=== PATIENT | female | born 1975 | race African-American/Black ===

== ENCOUNTER 2020-07-29 04:29 | Day surgery (SDC) | payer BC ==
[2020-07-28 10:44] VITALS: BMI 34.7
--- OUTSIDE RECORDS SUMMARY | 2020-07-29 04:33 | XMS ---
:1975 Author Organization [facility] Support Name Relationship Address [place] [address] [facility] Unavailable UNKNOWN UNKNOWN UNKNOWN UNKNOWN, UN UNKNOWN DOESNOTHAVE, ONE UNKNOWN UNKNOWN UN UNKNOWN, UN UN Re-disclosure Warning The records that you are about to access may contain information from federally- assisted alcohol or drug abuse programs. If such information is present, then the following federally mandated warning applies: This information has been disclosed to you from records protected by federal confidentiality rules (42 CFR part 2). The federal rules prohibit you from making any further disclosure of this information unless further disclosure is expressly permitted by the written consent of the person to whom it pertains or as otherwise permitted by 42 CFR part 2. A general authorization for the release of medical or other information is NOT sufficient for this purpose. The Federal rules restrict any use of the information to criminally investigate or prosecute any alcohol or drug abuse patient.The records that you are about to access may contain highly sensitive health information, the redisclosure of which is protected by Article 27-F of the [facility] Public Health law. If you continue you may haveaccess to information: Regarding HIV / AIDS; Provided by facilities licensed or operated by the [facility] Office of Mental Health; or Provided by the [facility] Office for People With Developmental Disabilities. If such information is present, then the following [facility] mandated warning applies: This information has been disclosed to you from confidential records which are protected by state law. State law prohibits you from making any further disclosure of this information without the specific written consent of the person to whom it pertains, or as otherwise permitted by law. Any unauthorized further disclosure in violation of state law may result in a fine or senior care sentence or both. A general authorization for the release of medical or other information is NOT sufficient authorization for further disclosure. Insurance Providers Payer name Policy type / Policy ID Covered Covered green party's Policy Plan Coverage type green party ID relationship to Landa Information landa BC OUT OF [id number] SP [id number] [employer] 40 BC OUT OF [id number] SP [id number] [employer] 40 Results ID Date Data Source [id number] 07/25/2020 05:50:00 PM EDT [facility] Name Value Range Interpretation Description Data Sup porting Code Source(s) Document(s ) SARS [facility] coronavirus 2 RNA This lab was ordered by [facility] and reported by [facility]. ID Date Data Source [id number] 06/28/2020 12:00:00 PM EDT [facility] Name Value Range Interpretation Code Description Data Yojana rce(s) Supporting Document(s ) SARS-CoV-2 [facility] (COVID-19) This lab was ordered by [facility] and reported by [facility]. ID Date Data Source [id number] 04/21/2020 04:23:00 PM EDT [facility] Name Value Range Interpretation Code Description Data Yojana rce(s) Supporting Document(s ) SARS-CoV-2 [facility] (COVID19) This lab was ordered by [facility] and reported by [facility]. Procedure
[2020-07-29] MEDS ORDERED: MIDAZOLAM HCL 2 MG/2 ML SINGLE DOSE VIAL ONE ×2 (09:15)
[2020-07-29] MEDS ORDERED: PROPOFOL 20 ML ONE ×3 (09:15)
--- NOTE | 2020-07-29 09:26 | HP ---
History & Physical Update - History History: No Change - Physical Physical: No Change - Assessment Assessment: No Change - Plan Plan: No Change (Hysteroscopy, polypectomy, D&C)
[2020-07-29] MEDS ORDERED: ceFAZolin SODIUM 1 GM VIAL ONE (09:40)
[2020-07-29] MEDS ORDERED: ceFAZolin SODIUM 1 GM VIAL IVPB ONE (09:40)
[2020-07-29] MEDS ORDERED: KETOROLAC TROMETHAMINE 30 MG/1 ML VIAL ONE (09:59)
--- NOTE | 2020-07-29 10:07 | OP ---
Operative Note - Note: Operative Date: 07/29/20 Pre-Operative Diagnosis: Endometrial polyp, menorrhagia Operation: Hysteroscopy, polypectomy, D&C Findings: Endometrial polyps Post-Operative Diagnosis: Same as Pre-op Surgeon: Mendoza Jimenes Anesthesiologist/TOWER DIRECTOR: Arnulfo Cruz Anesthesia: General Specimens Removed: Endometrial polyps, endometrial curettings Estimated Blood Loss (mls): 3 Blood Volume Replaced (mls): 0 Fluid Volume Replaced (mls): 700 Operative Report Dictated: Yes
[2020-07-29] MEDS ORDERED: ONDANSETRON 4 MG/2 ML VIAL IVPUSH PRN (10:13)
[2020-07-29] MEDS ORDERED: ACETAMINOPHEN 325 MG TABLET (FP) PO PRN (10:13)
[2020-07-29] MEDS ORDERED: oxyCODONE HCL 5 MG TABLET PO PRN (10:13)
[2020-07-29] MEDS ORDERED: LACTATED RINGERS SOLUTION 1,000 ML IV SCH (10:15)
[2020-07-29 13:42] VITALS: BP 154/62; PULSE 90; TEMP 98
--- NOTE | 2020-07-29 19:23 | OP ---
DATE OF OPERATION: 07/29/2020 PREOPERATIVE DIAGNOSIS: Endometrial polyps, menorrhagia. POSTOPERATIVE DIAGNOSIS: Endometrial polyps, menorrhagia. PROCEDURE: Hysteroscopy, polypectomy, dilation and curettage. SURGEON: Mendoza Jimenes MD ANESTHESIOLOGIST: Arnulfo Cruz DO ANESTHESIA: General. COMPLICATIONS: None. ESTIMATED BLOOD LOSS: 30 mL. INTRAVENOUS FLUIDS: 700 mL. PATHOLOGY: Endometrial polyps, endometrial curettings. FINDINGS: Examination under anesthesia revealed a small anteverted uterus with no pelvic or adnexal masses palpable. Hysteroscopy revealed several endometrial polyps and an otherwise normal uterine cavity. PROCEDURE: The patient was met preoperatively. The risks, benefits, and alternatives of surgery were discussed in detail. The consent form was reviewed and explained. The patient verbalized her understanding and requested to proceed with the surgery. She was brought to the OR with the IV running. The patient was placed on a surgical table in the supine position. The general anesthesia was achieved without difficulty. The patient was then placed in a dorsal lithotomy position using adjustable Manolo stirrups. The patient was then prepped and draped in the usual sterile fashion. A timeout procedure was conducted as per standard protocol. A weighted speculum was introduced inside the vagina with good visualization of the cervix. The cervix was grasped with a single-toothed tenaculum. The cervical os was dilated to accommodate a size 23 Leos dilator. A Symphion hysteroscope was then introduced gently into the uterine cavity. Multiple polyps were noted. A Symphion resection device was then used during hysteroscopy to excise all of the polyps. Once this was completed, the hysteroscope was removed. A sharp uterine curettage was performed. All of the tissue was submitted to pathology. All of the instruments were then removed from the patient. Good hemostasis was noted. Sponge, lap, needle counts and instrument counts were correct. The patient was then placed in a supine position and transferred to recovery room awake and in stable condition. Chely VANESSA/[id number]
--- NOTE | 2020-08-02 12:40 | PATH ---
Surgical Pathology Report Patient Name: JUSTINA PRASAD [facility]. Rec. #: [id number] /Age/Gender: 1975 (Age: 45) / F Account: [id number] Location: [facility] SURGICAL Taken: 07/29/2020 Received: 07/29/2020 Reported: 08/02/2020 Physicians: Mendoza Jimenes M.D. Specimen(s) Received A: ENDOMETRIAL POLYPS B: ENDOMETRIAL CURETTINGS Clinical History Menorrhagia, endometrial polyps Final Diagnosis A. ENDOMETRIAL POLYPS, POLYPECTOMY: FRAGMENTS OF ENDOMETRIAL POLYP. SEPARATE FRAGMENTS OF PROLIFERATIVE ENDOMETRIUM AND UNREMARKABLE ENDOCERVICAL TISSUE. B. ENDOMETRIAL CURETTINGS: FRAGMENTS OF ENDOMETRIAL POLYP. SEPARATE FRAGMENTS OF PROLIFERATIVE ENDOMETRIUM AND UNREMARKABLE ENDOCERVICAL TISSUE. SEPARATE FEW FRAGMENTS OF SMOOTH MUSCLE. Electronically Signed Didier Recinos M.D. Gross Description A. Received in formalin labeled "endometrial polyps," is a 3.0 x 2.2 x 0.3 cm aggregate of chambers pink soft tissue fragments. The formalin is filtered and the specimen is entirely submitted in one cassette. B. Received in formalin labeled "endometrial curettings," is a 4.0 x 3.8 x 0.6 cm aggregate of chambers red soft tissue fragments. The formalin is filtered and the specimen is entirely submitted in 4 cassettes. DL/07/29/2020 saudi/07/29/2020
== END 2020-07-29 13:15 | disposition home or self-care (01) ==
LOC: JASU-SURG 04:29
PROVIDERS: ATTEND Obstetrics & Gynecology
PROC: 0UB98ZX Excision of Uterus, Via Natural or Artificial Opening Endoscopic, Diagnostic (ICD-10-PCS; principal; 2020-07-29 09:00)
PROC: 0UDB7ZX Extraction of Endometrium, Via Natural or Artificial Opening, Diagnostic (ICD-10-PCS; 2020-07-29 09:00)
DX: N84.0 Polyp of corpus uteri (principal); N92.0 Excessive and frequent menstruation with regular cycle; I10 Essential (primary) hypertension; E11.9 Type 2 diabetes mellitus without complications; Z68.34 Body mass index [BMI] 34.0-34.9, adult
CPT/HCPCS: 84703; 86850; 86900; 86901; 88305-TC; 94760

== ENCOUNTER 2022-04-30 04:24 | Day surgery (SDC) | payer BC ==
[2022-04-26 10:26] VITALS: BMI 36.6
[2022-04-30] MEDS ORDERED: PROPOFOL 20 ML ONE (13:41)
[2022-04-30] MEDS ORDERED: LIDOCAINE HCL/PF 2% SDV 5ML VIAL ONE (13:41)
[2022-04-30] MEDS ORDERED: DEXAMETHASONE SOD PHOSPHATE 4 MG/1 ML VIAL ONE (13:41)
[2022-04-30] MEDS ORDERED: MIDAZOLAM HCL 2 MG/2 ML SINGLE DOSE VIAL ONE ×2 (13:42→14:29)
[2022-04-30] MEDS ORDERED: ceFAZolin SODIUM 1 GM VIAL ONE (14:38)
[2022-04-30] MEDS ORDERED: ceFAZolin SODIUM 1 GM VIAL IVPB ONE (14:40)
[2022-04-30] MEDS ORDERED: KETOROLAC TROMETHAMINE 30 MG/1 ML VIAL ONE (14:56)
[2022-04-30] MEDS ORDERED: ONDANSETRON 4 MG/2 ML VIAL IVPUSH PRN (17:05)
[2022-04-30] MEDS ORDERED: oxyCODONE HCL 5 MG TABLET PO PRN ×2 (17:05)
[2022-04-30] MEDS ORDERED: LACTATED RINGERS SOLUTION 1,000 ML IV SCH (17:15)
[2022-04-30 18:11] VITALS: TEMP 97.6
[2022-04-30 18:51] VITALS: BP 125/75; PULSE 84
== END 2022-04-30 19:00 | disposition home or self-care (01) ==
LOC: JASU-SURG 04:24
PROVIDERS: ATTEND Obstetrics & Gynecology
PROC: 0U5B8ZZ Destruction of Endometrium, Via Natural or Artificial Opening Endoscopic (ICD-10-PCS; principal; 2022-04-30 11:30)
PROC: 0UDB7ZX Extraction of Endometrium, Via Natural or Artificial Opening, Diagnostic (ICD-10-PCS; 2022-04-30 11:30)
DX: N92.0 Excessive and frequent menstruation with regular cycle (principal)
CPT/HCPCS: 81025; 88305-TC; 94760

== ENCOUNTER 2023-07-08 04:36 | Day surgery (SDC) | payer BC ==
[2023-07-03 13:33] VITALS: BMI 36.2
[~2023-07-08 04:36] MED LIST: ceFAZolin SODIUM 1 GM VIAL IVPB ONE
[2023-07-08] MEDS ORDERED: ONDANSETRON 4 MG/2 ML VIAL IVPUSH PRN (10:24)
[2023-07-08] MEDS ORDERED: oxyCODONE HCL 5 MG TABLET PO PRN (10:24)
[2023-07-08] MEDS ORDERED: LACTATED RINGERS SOLUTION 1,000 ML IV SCH (10:30)
[2023-07-08] MEDS ORDERED: MIDAZOLAM HCL 2 MG/2 ML SINGLE DOSE VIAL ONE (11:38)
[2023-07-08] MEDS ORDERED: PROPOFOL 20 ML ONE ×2 (11:38→12:03)
[2023-07-08] MEDS ORDERED: ceFAZolin SODIUM 1 GM VIAL IVPB ONE (12:10)
[2023-07-08 14:25] VITALS: RESP 20
[2023-07-08 15:31] VITALS: BP 116/67; PULSE 92; TEMP 97.9
== END 2023-07-08 15:49 | disposition home or self-care (01) ==
LOC: JASU-SURG 04:36
PROVIDERS: ATTEND Obstetrics & Gynecology
PROC: 0UB98ZZ Excision of Uterus, Via Natural or Artificial Opening Endoscopic (ICD-10-PCS; principal; 2023-07-08 11:30)
DX: N84.0 Polyp of corpus uteri (principal); D25.0 Submucous leiomyoma of uterus
CPT/HCPCS: 76998-TC; 81025; 94760